=== PATIENT | female | born 1970 ===

== ENCOUNTER 2019-02-01 19:04 | Emergency (ER) | payer OTHER ==
[2019-02-02] MEDS ORDERED: FLEXERIL PO ONE (00:52)
[2019-02-02] MEDS ORDERED: TORADOL IM ONE (00:52)
[2019-02-02] MEDS ORDERED: TORADOL ONE (00:52)
[2019-02-02] MEDS ORDERED: FLEXERIL ONE (00:52)
== END 2019-02-02 00:58 | disposition home or self-care (01) ==
LOC: ED 19:04
DX: R51 Headache (principal); Z53.21 Procedure and treatment not carried out due to patient leaving prior to being seen by health care provider
CPT/HCPCS: J1885